=== PATIENT | female | born 1995 | race African-American/Black ===

== ENCOUNTER 2022-03-19 12:28 | Emergency (ER) | payer OTHER, SELFPAY ==
[2022-03-19] MEDS ORDERED: Ondansetron ODT 4 MG TAB ONE (15:51)
[2022-03-19] MEDS ORDERED: Acetaminophen 500 MG TAB ONE (15:51)
[2022-03-19] MEDS ORDERED: Dexamethasone 10 MG/ML VIAL ONE (15:51)
== END 2022-03-19 16:15 | disposition home or self-care (01) ==
LOC: CSHERS 12:28
DX: J02.9 Acute pharyngitis, unspecified (principal); R11.2 Nausea with vomiting, unspecified; Z20.822 Contact with and (suspected) exposure to COVID-19
CPT/HCPCS: 87081; 87430; 87804; 99284; J1100; Q0162; U0003; U0005